=== PATIENT | female | born 1980 | race Two or more races ===

== ENCOUNTER → 2024-09-21 | Outpatient (CLI) | payer MEDICAID, SELFPAY ==
[2024-09-20 10:47] LABS: Basophils % (Auto) 0 % (0-2.5); Eosinophils # (Auto) 0.1 Thou/mm3 (0.0-0.5); Eosinophils % (Auto) 3 % (0-10); Hemoglobin 16.3 g/dL (12.0-16.0); Immature Granulocytes % (Auto) 0 % (0-0); Immature Granulocytes Auto 0.01 Thou/mm3 (0.00-0.00); Lymphocytes # (Auto) 1.4 Thou/mm3 (1.0-4.8); Lymphocytes % (Auto) 28 % (10-50); Mean Corpuscular HGB Conc 35.4 g/dl (31.0-37.0); Mean Corpuscular Hemoglobin 32.5 pg (25.0-35.0); Mean Corpuscular Volume 92 fL (80-100); Monocytes # (Auto) 0.4 Thou/mm3 (0.0-0.8); Monocytes % (Auto) 8 % (0-12); Neutrophils # (Auto) 3.1 Thou/mm3 (1.8-7.7); Neutrophils % (Auto) 61 % (37-80); Nucleated Red Blood Cell % 0 /100 WBC (0); Platelet Count 250 Thou/mm3 (140-440); RDW Standard Deviation 40.6 fL (36.4-46.3); Red Blood Count 5.01 Miln/mm3 (4.00-5.20)
[2024-09-20 11:03] LABS: INR 1.1 (0.9-1.3); Partial Thromboplastin Time 26.8 Seconds (22.0-36.0); Prothrombin Time 11.6 Seconds (9.0-12.2)
[2024-09-20 11:09] LABS: HCG,Qualitative Serum Negative
--- NOTE | 2024-09-21 08:00 | XR_ITS ---
Examination: Breast ultrasound, unilateral, right complete Date and time of exam: September 21, 2024 0934 hours INDICATIONS: History painful cyst in the retroareolar region, palpable lump one year Technique: Real-time grayscale sonographic images right breast retroareolar region axillary portion of the breast FINDINGS: Retroareolar cyst 10 x 6 x 10 mm No solid nodules IMPRESSION: BI-RADS Category 2: Benign findings
--- NOTE | 2024-09-21 08:30 | XR_ITS ---
Examinations: Ultrasound-guided percutaneous retroareolar right breast cyst aspiration Right breast sonography limited Exam date and time: September 21, 2024 0938 hours INDICATIONS: Retroareolar cyst with internal echoes, infected cyst in the retroareolar region right breast on right breast sonography today. Informed consent provided. Technique: A timeout was completed verifying correct patient, procedure, site, positioning, and special equipment if applicable Informed consent provided. The patient was placed in a supine position for the breast cyst aspiration. Sonographic images of the breast were performed for localization of the retroareolar cyst The patient's breast was prepped and draped in sterile fashion. Maximum sterile barrier technique, hand hygiene, ultrasound sterile technique 1% lidocaine utilized for local anesthesia. Utilizing ultrasonographic guidance successful aspiration of.= purulent contents 2 cc right retroareolar breast cyst The patient tolerated the procedure well and there were no complications. Impression: Successful CT-guided percutaneous aspiration infected retroareolar right breast cyst
== END | disposition home or self-care (01) ==
LOC: SIRX 07:56
PROVIDERS: Radiology Diagnostic Radiology; Referring Provider Surgery; Visit Provider Surgery
DX: N60.01 Solitary cyst of right breast (principal); Z01.812 Encounter for preprocedural laboratory examination
CPT/HCPCS: 10005; 36415; 76641; 84703; 85025; 85610; 85730; 87102

== ENCOUNTER 2025-02-27 16:35 | Emergency (ER) | payer MEDICAID, SELFPAY ==
[2025-02-27 16:37] VITALS: BMI 25.6
[2025-02-27 17:18] VITALS: BP 159/93; PULSE 89; RESP 18; TEMP 36.6; O2SAT 99
--- NOTE | 2025-02-27 17:41 | EDNOTE_ITS ---
ED Dental RME/HPI General Chief complaint: Shortness of Breath/Dyspnea Stated complaint: SOB & DYSPHAGIA S/P WISDOM TOOTH EXTRACTIONS Time Seen by Provider: 02/27/25 17:23 Arrival date/time: 02/27/25 16:35 RME / HPI RME / HPI Narrative: 44-year-old female presents the ED with complaint of mouth, jaw, throat pain secondary to wisdom tooth extractions today at 3 PM she states she is unable to swallow due to the pain and is unable to open her mouth. She is not drooling. She has no nausea or vomiting. She states the blood and saliva are going down her throat but she is not swallowing it. Related Data Home Medications ?Medication ?Instructions ?Recorded ?Confirmed cholecalciferol (vitamin D3) 1,250 50,000 unit PO DESTINY Y 09/23/21 09/23/21 mcg (50,000 unit) capsule Allergies Allergy/AdvReac Type Severity Reaction Status Date / Time No Known Allergies Allergy Verified 02/27/25 16:39 Review of Systems Review of Systems Systems Reviewed: All systems reviewed, normal except as documented Past Medical History Past Medical History NEUROLOGIC: Negative Neurological Disorders or Seizures CARDIAC: Negative Cardiac Disorders or Congestive Heart Failure RESPIRATORY: Positive Asthma; Negative Chronic Obstructive Pulmonary Disease (COPD), Bronchitis or Sleep Apnea GASTROINTESTINAL: Positive Gastrointestinal Disorders (CONSTIPATION) GENITOURINARY: Negative Genitourinary Disorders or Renal Disease REPRODUCTIVE: Negative Pelvic Inflammatory Disease MUSCULOSKELETAL: Negative Musculoskeletal Disorders ENDOCRINE: Negative Endocrine Disorders, Diabetes Mellitus Type 1 or Diabetes Mellitus Type 2 HEMATOLOGIC: Negative Blood Disorders OTHER HISTORY: Negative Autoimmune Disease, Blood Transfusions, Blood Transfusion Reaction, Anesthesia Reactions, MRSA or Cancer Family History FAMILY HISTORY: Positive Family Cardiac Disorders (HTN IN MOTHER AND FATHER); Negative Family Psychiatric Problems, Family Respiratory Disorders, Family Gastrointestinal Problems, Family Cancer, Family Surgery or Family Anesthesia Reaction Surgical History SURGICAL: Positive Section (x2) Social History SMOKING STATUS: Never smoker ED Exam Narrative Physical exam: Alert and oriented 44-year-old female, no acute distress. No drooling is noted. No tenderness to palpation of the mandible or maxilla. No TMJ tenderness to palpation. No anterior or posterior cervical chain adenopathy. No stridor is noted. Lungs are clear, regular rate and rhythm without murmurs. Abdomen is soft and nontender. Gauze in the mouth which has been in place for approximately 2.5 hours was removed. Areas visualized, no significant swelling noted and no significant bleeding noted. No trismus noted. No sublingual edema noted. Course Course Course Narrative: 44-year-old female presents the ED with complaint of mouth, jaw, throat pain secondary to wisdom tooth extractions today at 3 PM she states she is unable to swallow due to the pain and is unable to open her mouth. She is not drooling. She has no nausea or vomiting. She states the blood and saliva are going down her throat but she is not swallowing it. Alert and oriented 44-year-old female, no acute distress. No drooling is noted. No tenderness to palpation of the mandible or maxilla. No TMJ tenderness to palpation. No anterior or posterior cervical chain adenopathy. No stridor is noted. Lungs are clear, regular rate and rhythm without murmurs. Abdomen is soft and nontender. Gauze in the mouth which has been in place for approximately 2.5 hours was removed. Areas visualized, no significant swelling noted and no significant bleeding noted. Patient was given Toradol 30mg IM. Quality Measures none Orders Category Date Time Status Ketorolac Inj [Toradol Inj] Med 02/27/25 17:43 Discontinued 30 mg IM X1 ONE Vital Signs Vital signs: Vital Signs Temperature 98 F 02/27/25 17:18 Pulse Rate 89 02/27/25 17:18 Respiratory Rate 18 02/27/25 17:18 Blood Pressure 159/93 H 02/27/25 17:18 Pulse Oximetry (%) 99 02/27/25 17:18 Oxygen Delivery Method Room Air 02/27/25 17:18 Dental / Oral MDM Narrative MDM Narrative:: 44-year-old female presents the ED with complaint of mouth, jaw, throat pain secondary to wisdom tooth extractions today at 3 PM she states she is unable to swallow due to the pain and is unable to open her mouth. She is not drooling. She has no nausea or vomiting. She states the blood and saliva are going down her throat but she is not swallowing it. They have not contacted the oral surgeon, as was instructed. Alert and oriented 44-year-old female, no acute distress. No drooling is noted. No tenderness to palpation of the mandible or maxilla. No TMJ tenderness to palpation. No anterior or posterior cervical chain adenopathy. No stridor is noted. Lungs are clear, regular rate and rhythm without murmurs. Abdomen is soft and nontender. Gauze in the mouth which has been in place for approximately 2.5 hours was removed. Areas visualized, no significant swelling noted and no significant bleeding noted. No trismus or sublingual swelling noted. Patient was given Toradol 30mg IM. Patient data External records reviewed:: None Clinical information provided by:: patient and spouse Social determinants that could affect healthcare access:: none Patient has the following chronic illnesses:: None How is presenting disease/condition affected by chronic disease/condition?: no chronic disease Evaluation data The following diagnostics were reviewed and interpreted by me:: other (specify) (None) Lab and/or radiology exams considered but not ordered:: N/A Interpretation Summary: N/A Medications / Prescriptions Medications or Prescriptions considered but not ordered:: N/A Medication administrations:: Medication Administration History Discontinued Medications Ketorolac Tromethamine (Ketorolac Inj 60 Mg/2 Ml Vial) 30 mg IM X1 ONE Stop: 02/27/25 17:44 Toradol 30mg IM Consultations Consultation(s) initiated? (list below): No Diagnosis Dental Differential Diagnosis: toothache, dental abscess and other (Dry socket vs Post extraction pain.) Most likely diagnosis given after review of the tests above:: Post wisdom teeth extraction pain. Admission Indicated Admission indicated?: not indicated Explain why admission is indicated or not indicated:: Patient is stable for discharge. Admission Request Was there a request for admission?: No Disposition Plan Disposition Plan: Discharge Discharge Attestation Discharge Attestation: The patient and all family members were given an opportunity to ask questions and understood the discharge instructions. Discharge instructions specifically effects, indications for sooner follow up or return to the emergency department, and the expected course of current diagnosis. Patient condition: Stable Discharge Plan Plan Patient Disposition: HOME (Self Care) Discharge Disposition comment: Stable and Improved Prescriptions/Referrals Prescriptions/Med Rec: No Action cholecalciferol (vitamin D3) 1,250 mcg (50,000 unit) capsule 50,000 unit PO DAILY Referrals: No Primary/Family,Physician [Primary Care Provider] - In 1 week Problem List Clinical Impression: Pain, dental Patient/Caregiver Discharge Instructions Diet Instructions: soft or liquid foods for at least 24 hours Education Materials: ED Dental Pain Additional Instructions: Follow-up with your dentist tomorrow morning if you are still having significant pain with opening your mouth. Follow-up with your primary care physician in 24 to 48 hours. Return to the ED for any new or worsening symptoms. Print Language: Citizen Of [place] Stand Alone Forms: Josee Award Info., Patient Portal Info Letter PA/BUSINESS ASSOCIATE Supervising Physician PA/BUSINESS ASSOCIATE Supervising Physician: Dr Marte
[2025-02-27] MEDS: KETOROLAC INJ 60 MG/2 ML VIAL 30 MG IM (18:33)
== END 2025-02-27 18:42 | disposition home or self-care (01) ==
PROVIDERS: Emergency Provider Emergency Medicine
DX: K08.89 Other specified disorders of teeth and supporting structures (principal)
CPT/HCPCS: 99283; J1885